=== PATIENT | female | born 1990 | race African-American/Black ===

== ENCOUNTER 2020-04-09 15:17 | Emergency (ER) | payer MEDICAID, SELFPAY ==
[2020-04-09 16:02] VITALS: BP 108/55; PULSE 95; RESP 18; TEMP 36.4; O2SAT 100; BMI 21.2
== END 2020-04-09 16:57 | disposition left against medical advice (07) ==
PROVIDERS: Emergency Provider Emergency Medicine
DX: R68.84 Jaw pain (principal)
CPT/HCPCS: 99281; 99282